=== PATIENT | female | born 1950 | race Caucasian/White ===

== ENCOUNTER 2017-12-08 18:31 | Emergency (ER) | payer OTHER, MEDICARE ==
[~2017-12-08] VITALS: Ht 172.7 cm; Wt 87.6 kg
[~2017-12-08 18:31] MED LIST: Aspirin PO; CITRACAL + BON1 EACH PO; Calcium/Magnesiun/Zi PO; Colace GT; LYRICA75 MG PO; Lopressor PO; Lovenox SC; METOPROLOL TART50 MG PO; MOTRIN800 MG PO; Miralax, Glycolax PO; Normodyne,Trandate IV; PROBIOTIC1 EAC1 PO; PROPOFOL IV; Pepcid PO; Peridex PO; Protonix IV; SALINE FLUSH 1010 ML IV; SENOKOT5 ML GT; Senokot S,Pericolace PO; TOPROL XL50 MG; TOPROL XL50 MG PO; Tylenol PR; Ultram PO; VICODIN 5-3001 EACH PO; Vasotec IV; Zofran IV; celeXA PO; morphine Sulfate IV
[2017-12-08 22:00] VITALS: BP 164/109
[2017-12-08] MEDS ORDERED: TRAMADOL HCL50 MG PO (22:50)
[2017-12-08] MEDS ORDERED: MOTRIN600 MG PO (22:50)
== END 2017-12-08 23:32 | disposition home or self-care (01) ==
LOC: EME 18:31
DX: S42.214A Unspecified nondisplaced fracture of surgical neck of right humerus, initial encounter for closed fracture (principal); S00.81XA Abrasion of other part of head, initial encounter; W10.9XXA Fall (on) (from) unspecified stairs and steps, initial encounter; K21.9 Gastro-esophageal reflux disease without esophagitis
CPT/HCPCS: 73030; 73090; 73130; 99281; 99284